=== PATIENT | male | born 1980 ===

== ENCOUNTER 2017-09-07 09:09 | Emergency (ER) | payer BC, OTHER ==
[2017-09-07] MEDS ORDERED: Amoxicillin/Clavulanate K 875-125 MG Tab PO ONE (10:12)
[2017-09-07] MEDS ORDERED: Diphtheria,Pertussis(Acell),Tetanus Vaccine 0.5 ML SDV IM ONE (10:16)
[2017-09-07] MEDS ORDERED: Lidocaine 1% 10 ML MDV INJECT ONE (10:16)
--- NOTE | 2017-09-07 10:18 | EDM.PDOC ---
ED HPI GENERAL MEDICAL PROBLEM - General Chief Complaint: Bite:Animal, Insect Stated Complaint: DOG BITE Time Seen by Provider: 09/07/17 10:08 - History of Present Illness INITIAL COMMENTS - FREE TEXT/NARRATIVE: 36-year-old male comes emergency room after receiving the dog bite to the right lower leg. 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 The patient was not engaged with the dog in any way and this does not appear to be a provoked attack. The patient is uncertain of his last tetanus shot it was perhaps less than 10 years but certainly over 5. Patient denies any significant medical problems. However has been told he has had hypertension in the past. Treatments PHARMACIST PER DIEM: Reports: Dressing(s) Right Lower Posterior Leg Pain Score (Numeric/FACES): 2 - Related Data Allergies Allergy/AdvReac Type Severity Reaction Status Date / Time No Known Allergies Allergy Verified 09/07/17 09:23 Home Meds: Home Meds Amoxicillin/Clavulanate K [Augmentin 875 MG/125 MG] 1 tab PO Q12HR #13 tablet [Rx] Past Medical History HEENT History: Reports: Impaired Vision Cardiovascular History: Reports: Hypertension Social & Family History - Tobacco Use Smoking Status *Q: Current Every Day Smoker Years of Tobacco use: 5 Packs/Tins Daily: 0.2 - Caffeine Use Caffeine Use: Reports: Coffee, Energy Drinks, Soda - Recreational Drug Use Recreational Drug Use: No ED ROS GENERAL - Review of Systems Review Of Systems: See Below Constitutional: Reports: No Symptoms Respiratory: Reports: No Symptoms Cardiovascular: Reports: No Symptoms GI/Abdominal: Reports: No Symptoms ED EXAM, ANIMAL BITE - Physical Exam Exam: See Below Exam Limited By: No Limitations General Appearance: Alert, No Apparent Distress, Other (Blood pressure slightly elevated) Respiratory/Chest: No Respiratory Distress, Lungs Clear, Normal Breath Sounds Cardiovascular: Regular Rate, Rhythm, No Edema, No Murmur Extremities: Other (Family shows right lower leg shows a 5 cm irregular laceration on the posterior medial aspect of his calf) Neurological: Alert, Oriented, Normal Cognition ED ANIMAL BITE PROCEDURES - Laceration/Wound Repair Right Leg Lac/Wound Length In cm: 5 (Right posterior medial lower leg) Appearance: Irregular, Clean Distal NVT: Neuro & Vascular Intact Anesthetic Type: Local Local Anesthesia - Lidocaine (Xylocaine): 1% Plain Local Anesthetic Volume: 5cc Skin Prep: Saline Exploration/Debridement/Repair: Wound Explored, In a Bloodless Field, Explored to Base, Moderate Debridement Closed With: Sutures Suture Size: 3-0 # of Sutures: 3 (Simple stitches allowed the wound margins to invert so horizontal mattress sutures were used) Suture Type: Mattress Tetanus Status Addressed: Yes (Tetanus updated) Complications: No Progress/Comments: Status factory anesthesia the area was cleaned some nonviable skin was prided some loose fat bodies were removed. Attempted simple stitches for loose approximation but the wound margins inverted so 3 horizontal mattress stitches were placed yielding good loose wound approximation. Patient will be discharged on Augmentin. The dog is a government dog and they have documentation showing immunizations. Course - Vital Signs Last Recorded V/S: Last Vital Signs Temp 36.9 C 09/07/17 09:17 Pulse 74 09/07/17 09:17 Resp 12 09/07/17 09:17 BP 147/96 H 09/07/17 09:17 Pulse Ox 10 L 09/07/17 09:17 - Orders/Labs/Meds Orders: Active Orders 24 hr Category Date Time Status Vaccines to be Administered [RC] PER UNIT ROUTINE Care 09/07/17 10:16 Active Meds: Medications Discontinued Medications Generic Name Dose Route Start Last Admin Trade Name Daniella PRN Reason Stop Dose Admin Amoxicillin/Clavulanate Potassium 1 tab 09/07/17 10:12 09/07/17 10:24 Augmentin 875 Mg/125 Mg PO 09/07/17 10:13 1 tab ONETIME ONE Administration Diphtheria/Tetanus/Acell Pertussis 0.5 ml 09/07/17 10:16 09/07/17 10:24 Adacel IM 09/07/17 10:17 0.5 ml .ONCE ONE Administration Lidocaine HCl 10 ml 09/07/17 10:16 09/07/17 10:24 Xylocaine 1% INJECT 09/07/17 10:17 10 ml ONETIME ONE Administration Departure - Departure Time of Disposition: 12:53 Disposition: Home, Self-Care 01 Clinical Impression: Dog bite of right calf, Laceration of lower leg - Discharge Information Prescriptions: Amoxicillin/Clavulanate K [Augmentin 875 MG/125 MG] 1 tab PO Q12HR #13 tablet Referrals: PCP,None [Primary Care Provider] - Forms: ED Department Discharge Additional Instructions: Return to the emergency room with any questions problems or worsening symptoms return with any concerns of wound infection. You been started on Augmentin, this is an antibiotic take one twice daily start this evening your first dose was given here in the emergency room. Keep the wound clean and dry for the next 24 hours after 24 hours continue to keep clean and dry however you may let water gently run over the area no scrubbing gently dab dry. Keep covered as needed. When it is done draining you may leave it open. Follow-up in Hospital clinic for suture removal in 10-12 days. - My Orders Last 24 Hours: My Active Orders 09/07/17 10:16 Vaccines to be Administered [RC] PER UNIT ROUTINE - Assessment/Plan Last 24 Hours: My Active Orders 09/07/17 10:16 Vaccines to be Administered [RC] PER UNIT ROUTINE
== END 2017-09-07 13:13 | disposition home or self-care (01) ==
LOC: JD.ED 09:09
DX: S81.851A Open bite, right lower leg, initial encounter (principal); F17.210 Nicotine dependence, cigarettes, uncomplicated; Z23 Encounter for immunization; W54.0XXA Bitten by dog, initial encounter
CPT/HCPCS: 12002; 90471; 90715; 99283; A9270